=== PATIENT | male | born 1965 | race Caucasian/White ===

== ENCOUNTER 2019-05-10 14:23 | Outpatient (CLI) | payer OTHER ==
[2019-05-10 19:09] LABS: BASOPHILS % (AUTO) 0.7 %; EOSINOPHILS # (AUTO) 0.1 10^3/uL (0.0-0.7); EOSINOPHILS % (AUTO) 1.2 %; HGB - HEMOGLOBIN 15.6 g/dL (14.0-18.0); LYMPHOCYTES % (AUTO) 33.8 %; MEAN CORPUSCULAR HEMOGLOBIN 33.7 pg (27.0-31.0); MEAN CORPUSCULAR HGB CONC 33.8 g/dL (32.0-36.0); MEAN CORPUSCULAR VOLUME 99.6 fL (80.0-94.0); MEAN PLATELET VOLUME 10.8 fL (7.4-11.4); MONOCYTES # (AUTO) 0.7 10^3/uL (0.0-1.0); MONOCYTES % (AUTO) 12.5 %; NEUTROPHILS % (AUTO) 51.6 %; PLT - PLATELET COUNT 192 10^3/uL (130-450); RED BLOOD COUNT 4.63 10^6/uL (4.70-6.10); RED CELL DISTRIBUTION WIDTH 13.3 % (12.0-15.0); WHITE BLOOD COUNT 5.8 x10^3/uL (4.8-10.8)
[2019-05-10 19:21] LABS: HB2 TOTAL 16.8 g/dL; HEMOGLOBIN A1C 0.54 g/dL; HEMOGLOBIN A1C % 5.1 % (4.6-6.2)
[2019-05-10 19:29] LABS: ALBUMIN 4.8 g/dL (3.2-5.5); ALBUMIN/GLOBULIN RATIO 1.7 (1.0-2.2); ALKALINE PHOSPHATASE 46 IU/L (42-121); ALT ALANINE AMINOTRANSFERASE 51 IU/L (10-60); AST ASPARTATE AMINOTRANSFERASE 33 IU/L (10-42); BILIRUBIN,TOTAL 1.4 mg/dL (0.2-1.0); BUN - BLOOD UREA NITROGEN 8 mg/dL (6-20); CALCIUM 9.6 mg/dL (8.5-10.3); CARBON DIOXIDE - CO2 26 mmol/L (21-32); CHLORIDE 99 mmol/L (101-111); CHOL/HDL RATIO 2.4 (<5.0); CHOLESTEROL 227 mg/dL; CREATININE 0.6 mg/dL (0.6-1.2); GFR - MDRD 141 (>89); GLUCOSE 96 mg/dL (70-100); HDL CHOLESTEROL 95 mg/dL; LDL CHOLESTEROL,CALCULATED 117 mg/dL; LDL/HDL RATIO 1.2 (<3.6); SODIUM 137 mmol/L (135-145); TOTAL PROTEIN 7.7 g/dL (6.7-8.2); VLDL CHOLESTEROL 15 mg/dL
== END 2019-05-10 23:59 | disposition home or self-care (01) ==
LOC: LAB.N 14:23
PROVIDERS: ATTEND Family Medicine
DX: Z00.00 Encounter for general adult medical examination without abnormal findings (principal)
CPT/HCPCS: 36415; 80053; 80061; 83036; 83721; 84443; 85025

== ENCOUNTER 2023-04-15 13:01 | Outpatient (CLI) | payer OTHER ==
[2023-04-15 17:56] LABS: HCT - HEMATOCRIT 48.9 % (42.0-52.0); HGB - HEMOGLOBIN 16.6 g/dL (14.0-18.0); MEAN CORPUSCULAR HEMOGLOBIN 34.1 pg (27.0-31.0); MEAN CORPUSCULAR HGB CONC 33.9 g/dL (32.0-36.0); MEAN CORPUSCULAR VOLUME 100.4 fL (80.0-94.0); MEAN PLATELET VOLUME 11.7 fL (7.4-11.4); RED BLOOD COUNT 4.87 10^6/uL (4.70-6.10); RED CELL DISTRIBUTION WIDTH 13.3 % (12.0-15.0); WHITE BLOOD COUNT 7.4 x10^3/uL (4.8-10.8)
[2023-04-15 18:41] LABS: FECAL OCCULT BLOOD (FIT) POSITIVE (NEGATIVE)
[2023-04-15 18:52] LABS: ALBUMIN 4.6 g/dL (3.2-5.5); ALBUMIN/GLOBULIN RATIO 2.1 (1.0-2.2); ALKALINE PHOSPHATASE 50 IU/L (42-121); ALT ALANINE AMINOTRANSFERASE 62 IU/L (10-60); AST ASPARTATE AMINOTRANSFERASE 50 IU/L (10-42); BUN - BLOOD UREA NITROGEN 10 mg/dL (6-20); CALCIUM 10.3 mg/dL (8.5-10.3); CARBON DIOXIDE - CO2 31 mmol/L (21-32); CHLORIDE 101 mmol/L (101-111); CHOL/HDL RATIO 2.1 (<5.0); CHOLESTEROL 169 mg/dL; CREATININE 0.7 mg/dL (0.6-1.3); GFR - MDRD 117 (>89); GLUCOSE 108 mg/dL (74-104); HDL CHOLESTEROL 82 mg/dL; LDL CHOLESTEROL,CALCULATED 73 mg/dL; LDL/HDL RATIO 0.9 (<3.6); POTASSIUM 3.5 mmol/L (3.5-4.5); SODIUM 140 mmol/L (135-145); TOTAL PROTEIN 6.8 g/dL (6.4-8.9); TRIGLYCERIDES 69 mg/dL (48-352); VLDL CHOLESTEROL 14 mg/dL
[2023-04-15 19:12] LABS: THYROID STIMULATING HORMONE 2.97 uIU/mL (0.34-5.60)
[2023-04-15 21:39] LABS: ESTIMATED AVERAGE GLUCOSE 91 mg/dL (70-100); HEMOGLOBIN A1c% 4.8 % (4.27-6.07)
== END 2023-04-15 13:02 | disposition home or self-care (01) ==
LOC: LAB.N 13:01
PROVIDERS: ATTEND Family Medicine
DX: I10 Essential (primary) hypertension (principal); R25.1 Tremor, unspecified; H93.12 Tinnitus, left ear; H69.83 Other specified disorders of Eustachian tube, bilateral; E78.5 Hyperlipidemia, unspecified; Z12.11 Encounter for screening for malignant neoplasm of colon
CPT/HCPCS: 36415; 80053; 80061; 82274; 83036; 83721; 84443; 85027

== ENCOUNTER 2023-08-12 09:23 | Day surgery (SDC) | payer OTHER ==
[2023-08-12] MEDS ORDERED: LACTATED RINGERS 1,000 ML IV ONE ×2 (09:27→11:11)
[2023-08-12] MEDS ORDERED: PROPOFOL 500 MG/50 ML 500 MG/50 ML VIAL ONE (09:49)
[2023-08-12] MEDS ORDERED: MIDAZOLAM 2 MG/2 ML VIAL ONE (10:15)
--- NOTE | 2023-08-12 10:23 | ANESTHESIA ---
Pre-Anesthesia VS, & Labs - Diagnosis screening - Procedure colonoscopy Vital Signs: Temp Pulse Resp BP Pulse Ox O2 Flow Rate 36.1 C L 83 14 132/93 H 100 0 08/12/23 09:36 08/12/23 09:36 08/12/23 09:36 08/12/23 09:36 08/12/23 09:36 08/12/23 09:36 Height: 5 ft 8 in Weight (kg): 73.2 kg Body Mass Index: 24.5 BMI Classification: Normal - NPO >8 hours Home Medications and Allergies Home Medications: Ambulatory Orders Metoprolol Succinate [Toprol Xl] 25 mg PO DAILY 08/11/23 Metoprolol Succinate [Toprol Xl] 25 mg PO DAILY 08/11/23 Allergies/Adverse Reactions: Allergies Allergy/AdvReac Type Severity Reaction Status Date / Time No Known Drug Allergies Allergy Verified 08/11/23 14:00 Anes History & Medical History - Anesthetic History Anesthesia Complications: reports: No previous complications Family history of Anesthesia Complications: Denies Family history of Malignant Hyperthermia: Denies - Medical History Cardiovascular: reports: Hypertension Pulmonary: reports: None Gastrointestinal: reports: None Urinary: reports: None Musculoskeletal: reports: None Endocrine/Autoimmune: reports: None Skin: reports: None Exam General: Alert, Oriented x3, Cooperative Dental: WNL Mouth Openin Fingerbreadth Neck Mobility: Normal Mallampati classification: II Thyromental Distance: 4-6 cm Respiratory: Lungs clear, Normal breath sounds, No respiratory distress Cardiovascular: Regular rate Neurological: Normal speech Mental/Cognitive Status: Alert/Oriented X3, Normal for patient Cognitive Status: Within normal limits Plan Anesthesia Type: Total IV Consent for Procedure(s) Verified and Reviewed: Yes Code Status: Attempt Resuscitation ASA classification: 2-Mild systemic disease Is this case an emergency?: No
[2023-08-12 11:35] VITALS: BP 134/96; O2SAT 96
--- NOTE | 2023-08-12 11:48 | ANESTHESIA POST OP EVALUATION ---
Anesthesia Post Eval - Post Anesthesia Eval Vitals: Last Vital Signs Temp 36.2 C L 08/12/23 11:32 Pulse 80 08/12/23 11:32 Resp 16 08/12/23 11:32 BP 134/96 H 08/12/23 11:32 Pulse Ox 96 08/12/23 11:32 O2 Flow Rate 0 08/12/23 09:36 CV Function Including HR & BP: Stable Pain Control: Satisfactory Nausea & Vomiting: Negative Mental Status: Baseline Respiratory Status: Airway Patent Hydration Status: Satisfactory Anesthesia Complications: None
== END 2023-08-12 09:24 | disposition home or self-care (01) ==
LOC: SDS 09:23
PROVIDERS: ATTEND Surgery
PROC: 0DBN8ZZ Excision of Sigmoid Colon, Via Natural or Artificial Opening Endoscopic (ICD-10-PCS; 2023-08-12)
PROC: 0DBP8ZZ Excision of Rectum, Via Natural or Artificial Opening Endoscopic (ICD-10-PCS; 2023-08-12)
PROC: 0DBM8ZZ Excision of Descending Colon, Via Natural or Artificial Opening Endoscopic (ICD-10-PCS; principal; 2023-08-12 10:30)
DX: R19.5 Other fecal abnormalities (principal); D12.8 Benign neoplasm of rectum; D12.5 Benign neoplasm of sigmoid colon; D12.4 Benign neoplasm of descending colon; K62.1 Rectal polyp; I10 Essential (primary) hypertension
CPT/HCPCS: 45380; 45385; J7120